=== PATIENT | female | born 1960 | race Caucasian/White ===

== ENCOUNTER 2023-07-18 10:43 | Emergency (ER) | payer OTHER, SELFPAY ==
[2023-07-18 10:49] VITALS: BP 145/92; PULSE 97; RESP 16; TEMP 36.5; O2SAT 98; BMI 27.5
--- NOTE | 2023-07-18 11:32 | ED.GENADULT ---
HPI - General Adult General Chief complaint: Extremity Pain/Injury, Lower Stated complaint: Numbness/cold in R leg Time Seen by Provider: 07/18/23 11:32 History of Present Illness HPI narrative: Pt in undergoing CA treatment for a Tumor located in the right hip area c/o numbness in the right leg and difficulty moving her foot 62-year-old woman presenting to the emergency department with complaint of numbness in the lower right leg. She has some pressure in the inner buttock and perineal area and coolness in the cleanse the feeling to her toes. She was having trouble going up the stairs yesterday she noticed being somewhat flat footed. Typically now not going up on her toes. As of yesterday has been losing control of urine when she transitions, moves, stands up. Does have metastatic liver cancer to I believe the right ischium and lungs. Has along history of immunotherapy. Does not receive chemotherapy. She was on her way to be evaluated it to begin radiation therapy when reported this to her oncologist Dr. Watson at [facility]. They recommended be evaluated in the emergency department. Review of Systems Status of ROS: Reports: 6 or more systems reviewed and unremarkable except as noted in History and below [facility] Social History Smoking Status: Never smoker How often do you have a drink containing alcohol: never How often do you have six or more drinks on one occasion: Never AUDIT-C Alcohol total score: 0 Non-prescribed substance use: denies use Exam Narrative: Exam Narrative: Pleasant. Appropriately wry humor. Skin is warm and dry. She is well-perfused peripherally. Subjective sensations as noted above. Appears to have good strength to dorsiflexion plantar flexion at the ankle. A little hyperreflexic DTRs at the patella the right versus the left. Did not evaluate perineum. Is breathing easily. Lungs appear to be clear. Watching her ambulate later clearly has an antalgic gait with footdrop on the right side somehow Const: Vital Signs, click to edit/add: Vital Signs - 24 hr 07/18/23 10:49 Temperature 97.7 F Pulse Rate [Pulse Oximeter] 97 Respiratory Rate 16 Blood Pressure [Ri ght Upper Arm] 145/92 H Pulse Oximetry 98 Oxygen Delivery Me thod Room Air Documenting provider has reviewed patient's vital signs: yes Course Vital Signs Vital signs: Initial Vital Signs Temperature 97.7 F 07/18/23 10:49 Temperature Source Oral 07/18/23 10:49 Pulse Rate 97 07/18/23 10:49 Pulse Rhythm Regular 07/18/23 10:49 Respiratory Rate 16 07/18/23 10:49 Blood Pressure 145/92 H 07/18/23 10:49 Blood Pressure Mean 109 H 07/18/23 10:49 Pulse Oximetry 98 07/18/23 10:49 Oxygen Delivery Method Room Air 07/18/23 10:49 Vital Signs Temperature 97.7 F 07/18/23 10:49 Pulse Rate 97 07/18/23 10:49 Respiratory Rate 16 07/18/23 10:49 Blood Pressure 145/92 H 07/18/23 10:49 Pulse Oximetry 98 07/18/23 10:49 Oxygen Delivery Method Room Air 07/18/23 10:49 Temperature 96.7 F L 07/18/23 14:47 Pulse Rate 90 07/18/23 14:47 Respiratory Rate 20 07/18/23 14:47 Blood Pressure 154/96 H 07/18/23 14:47 Pulse Oximetry 98 07/18/23 14:47 Oxygen Delivery Method Room Air 07/18/23 14:47 Medical Decision Making MDM Narrative Medical decision making narrative: I would anticipate need for imaging possibly MRI of possible of the lumbar spine maybe sacrum. Would have concerns given clinical picture of some lesion at S1-S2 area. Called to [facility] and spoke with Dr. Watson who confirmed ideally MRI though CT would also be helpful. Able to do a lumbar MRI shortly but not enough time for pelvic MRI. MRI completed with read as below Indication: Right leg pain, clinical radiculopathy. Known ischium tumor. Technique: T2, T1, and STIR sagittal as well as T1 and T2 axial sequences were obtained. Performed before and after IV gadolinium. Contrast: 15 cc DOTAREM. Comparison: None available. Findings: There is an enhancing oval tumor which involves the right parasagittal sacrum at the lower S1 and upper S2 levels, expanding into the spinal canal where it effaces the thecal sac and impinges on the right S2 nerve root. The right S1 root also passes adjacent to the margin of the tumor. The lesion measures 34 x 32 x 27 mm (TR by CC by AP). A 2nd lesion with enhancement is seen in the right innominate bone just lateral to the anterior aspect of the sacroiliac joint, seen only on the axial images and measuring 18 mm. There is a reported known tumor in the ischium, not included on this examination. Findings would be most compatible with myeloma or metastatic disease. No fracture is identified. No evidence for pars defect. Alignment is anatomic. No stenosis of the lumbar spinal canal proper. The conus and cauda equina are unremarkable, with the tip of the cord at the L1 level. No abnormal intradural IV gadolinium enhancement is identified. No paraspinal pathology is identified. T12-L1: The disc is negative. The foramina are patent. L1-2 through L5-S1: Scattered low-grade disc and facet degenerative changes and low-grade foraminal narrowing. Impression: 1. There is an enhancing expansile 34 mm mass in the right parasagittal upper sacrum, effacing the distal thecal sac and causing fredi impingement on the right S2 nerve root. 2. A 2nd small enhancing mass measuring 18 mm is seen in the right innominate bone adjacent to the sacroiliac joint. 3. Scattered low-grade spondylosis. Dictated by Khang Mckeon MD @ 07/18/2023 1:57:04 PM Given also IV normal saline during time in the emergency department and recommended for dose of Solu-Medrol. To continue on today to set up radiation treatment. Dr. Watson is facilitating. See patient discharge plan Medical Records Medical records reviewed: Yes I reviewed the patient's medical records Discharge Plan Discharge Clinical Impression: Cancer of liver, primary, Metastatic cancer, Radiculopathy Patient Disposition: Home w/ Parent or Adult Condition: Stable Additional Instructions: Please go over to [facility]. They are expecting you. Follow Up/Referrals: Polly Coronel MD [Primary Care Provider] - Stand Alone Forms: [employer] Info Instructions
--- NOTE | 2023-07-18 12:03 | CRLHL7_ITS ---
For Patients: As a result of the Century Cures Act, medical imaging exams and procedure reports are released immediately into your electronic medical record. You may view this report before your referring provider. If you have questions, please contact your health care provider. Indication: Right leg pain, clinical radiculopathy. Known ischium tumor. Technique: T2, T1, and STIR sagittal as well as T1 and T2 axial sequences were obtained. Performed before and after IV gadolinium. Contrast: 15 cc DOTAREM. Comparison: None available. Findings: There is an enhancing oval tumor which involves the right parasagittal sacrum at the lower S1 and upper S2 levels, expanding into the spinal canal where it effaces the thecal sac and impinges on the right S2 nerve root. The right S1 root also passes adjacent to the margin of the tumor. The lesion measures 34 x 32 x 27 mm (TR by CC by AP). A 2nd lesion with enhancement is seen in the right innominate bone just lateral to the anterior aspect of the sacroiliac joint, seen only on the axial images and measuring 18 mm. There is a reported known tumor in the ischium, not included on this examination. Findings would be most compatible with myeloma or metastatic disease. No fracture is identified. No evidence for pars defect. Alignment is anatomic. No stenosis of the lumbar spinal canal proper. The conus and cauda equina are unremarkable, with the tip of the cord at the L1 level. No abnormal intradural IV gadolinium enhancement is identified. No paraspinal pathology is identified. T12-L1: The disc is negative. The foramina are patent. L1-2 through L5-S1: Scattered low-grade disc and facet degenerative changes and low-grade foraminal narrowing. Impression: 1. There is an enhancing expansile 34 mm mass in the right parasagittal upper sacrum, effacing the distal thecal sac and causing fredi impingement on the right S2 nerve root. 2. A 2nd small enhancing mass measuring 18 mm is seen in the right innominate bone adjacent to the sacroiliac joint. 3. Scattered low-grade spondylosis. Dictated by Khang Mckeon MD @ 07/18/2023 1:57:04 PM (Electronically Signed)
[2023-07-18] MEDS: 0.9 % SODIUM CHLORIDE 1000 ml 1,000 ML IV (12:15)
[2023-07-18] MEDS: METHYLPREDNISOLONE SOD SUCC 62.5 MG/ML (125) 125 MG IVP (12:15)
[2023-07-18 14:47] VITALS: BP 154/96; PULSE 90; RESP 20; TEMP 35.9; O2SAT 98
== END 2023-07-18 14:50 | disposition home or self-care (01) ==
PROVIDERS: Emergency Provider Family Medicine; PCP Family Medicine
DX: M54.16 Radiculopathy, lumbar region (principal); C22.0 Liver cell carcinoma
CPT/HCPCS: 72158; 96374; 99284; A9575; J2930; J7030